=== PATIENT | female | born 1960 | race Caucasian/White ===

== ENCOUNTER 2017-04-30 16:13 | Inpatient (IN) | payer MEDICAID, OTHER ==
[~2017-04-30] VITALS: Ht 175.3 cm; Wt 93.4 kg
--- NOTE | 2017-04-30 16:13 | NUR ---
[id number] FROM [facility]: DISLODGED TRACHE-TUBE 7.0 CORTEX UNCUFFED. PLACED ON MONITOR. GOWNED PT. DR CAVAZOS AT BEDSIDE FOR EVAL. PT ALERT ORIENTED X3 . GTUBE IN PLACED,
--- NOTE | 2017-04-30 16:21 | NUR ---
VELMA VALENZUELA [facility] [phone]
--- NOTE | 2017-04-30 16:33 | NUR ---
REPAGED FOR DR MERLE NAYAK
--- NOTE | 2017-04-30 16:36 | NUR ---
LEFT MESSAGE WITH DR ROSALIO [facility] EMERGENCY LINE FOR ER CONSULT
[2017-04-30 16:43] LABS: BASOPHILS # (AUTO) 0.1 /CMM (0.0-0.2); BASOPHILS % (AUTO) 0.5 % (0.0-2.0); EOSINOPHILS # (AUTO) 0.2 /CMM (0.0-0.7); EOSINOPHILS % (AUTO) 1.5 % (0.0-6.0); HEMATOCRIT 33 % (33-45); HEMOGLOBIN 11.1 g/dL (11.5-14.8); LYMPHOCYTES # (AUTO) 2.5 /CMM (0.8-4.8); LYMPHOCYTES % (AUTO) 22.4 % (20.0-44.0); MEAN CORPUSCULAR HEMOGLOBIN 32 PG (26.0-33.0); MEAN CORPUSCULAR HGB CONC 34 g/dl (31.0-36.0); MEAN CORPUSCULAR VOLUME 95 fL (82-100); MONOCYTES # (AUTO) 0.5 /CMM (0.1-1.30); MONOCYTES % (AUTO) 4.1 % (2.0-12.0); NEUTROPHILS # (AUTO) 7.8 /CMM (1.8-8.9); NEUTROPHILS % (AUTO) 71.5 % (43.0-81.0); PLATELET COUNT (AUTO) 526 /CMM (150-450); RDW COEFFICIENT OF VARIATION 12.4 (11.5-15.0); RED BLOOD CELL COUNT(AUTO) 3.51 MIL/uL (4.0-5.2); WHITE BLOOD COUNT (AUTO) 11.1 K/uL (4.3-11.0)
[2017-04-30 16:53] LABS: POTASSIUM 4.4 mmol/L (3.5-5.1)
--- NOTE | 2017-04-30 16:56 | NUR ---
REPAGED DR JAMARCUS VALENZUELA
[2017-04-30] MEDS ORDERED: HEPA50008 SQ (17:05)
[2017-04-30] MEDS ORDERED: FAMO-131 GT (17:05)
[2017-04-30] MEDS ORDERED: LEVE100S GT (17:05)
[2017-04-30] MEDS ORDERED: SENN8.6T6 GT (17:05)
[2017-04-30] MEDS ORDERED: MINO2.5T GT (17:05)
[2017-04-30] MEDS ORDERED: CRAN3875 GT (17:05)
[2017-04-30] MEDS ORDERED: AMLO10TA2 GT (17:05)
[2017-04-30] MEDS ORDERED: ATOR40TA GT (17:05)
[2017-04-30] MEDS ORDERED: ACET-868 GT (17:05)
[2017-04-30] MEDS ORDERED: ACET-2605 GT (17:05)
[2017-04-30] MEDS ORDERED: LISI-603 PO (17:05)
[2017-04-30] MEDS ORDERED: METO25TA6 GT (17:05)
[2017-04-30] MEDS ORDERED: ACID1TAB15 GT (17:05)
[2017-04-30] MEDS ORDERED: HYDR-552 GT (17:05)
[2017-04-30] MEDS ORDERED: ALBU2.5V13 NEB (17:05)
[2017-04-30] MEDS ORDERED: ASCO500S2 GT (17:05)
[2017-04-30] MEDS ORDERED: GABA-532 GT (17:05)
[2017-04-30] MEDS ORDERED: DOCU-170 GT (17:05)
[2017-04-30 17:11] LABS: INR 0.99 (0.87-1.13); PROTHROMBIN TIME 10.3 SECS (9.5-12.7)
--- NOTE | 2017-04-30 17:13 | NUR ---
CHILDREN'S MINISTER AT BEDSIDE
--- NOTE | 2017-04-30 17:14 | NUR ---
DR VALENZUELA CALLED BACK, TRANSFERRED CALL TO DR CAVAZOS
--- NOTE | 2017-04-30 17:41 | NUR ---
PT CAME IN TO ER WITH TRACH DISLODGED, PUT PT ON 5 L NASAL SATURATION 100%, NO RESPIRATORY DISTRESS, HEMODYNAMIC STABLE. BROUGHT BRONCHOSCOPE DOWN TO ER REQUESTED BY ENT DOCTOR. HOWEVER, FOUND PT REFUSED TO PLACE TRACH BACK IN.
--- NOTE | 2017-04-30 17:57 | NUR ---
PAGED DR ADEEL POSEY FOR PANEL ADMISSION
[2017-04-30] MEDS ORDERED: PANTOPRAZOLE 40 MG TABLET.DR PO SCH (18:30)
[2017-04-30] MEDS ORDERED: ZOLPIDEM TARTRATE 5 MG TABLET PO PRN (18:30)
[2017-04-30] MEDS ORDERED: Medication Not On Formulary EA (Cran/Vitc/Mannose/Inulin/Brom (Uti-Stat Liquid) 30 ML) GT SCH (18:30)
[2017-04-30] MEDS ORDERED: MAG HYDROX/AL HYDROX/SIMETH 30 ML UDC GT PRN (18:30)
[2017-04-30] MEDS ORDERED: ENOXAPARIN SODIUM 30 MG/0.3 ML DISP.SYRIN SQ SCH (18:30)
[2017-04-30] MEDS: FAMOTIDINE (20 MG) 20 MG TABLET GT SCH (18:30)
[2017-04-30] MEDS: HYDROCODONE/APAP 5/325MG 1 EACH TABLET GT SCH (18:30)
[2017-04-30] MEDS: AMLODIPINE BESYLATE 10 MG TABLET GT SCH (18:30)
[2017-04-30] MEDS ORDERED: ACETAMINOPHEN 325 MG TABLET PO SCH (18:30)
[2017-04-30] MEDS ORDERED: ONDANSETRON HCL/PF 4 MG/2 ML VIAL IVP PRN (18:30)
[2017-04-30] MEDS ORDERED: DOCUSATE SODIUM 100 MG CAPSULE PO SCH (18:30)
[2017-04-30] MEDS ORDERED: MAGNESIUM HYDROXIDE 30 ML UDC GT PRN (18:30)
[2017-04-30] MEDS: GABAPENTIN 100 MG CAPSULE GT SCH (18:30)
[2017-04-30] MEDS ORDERED: HYDROCODONE/APAP 5/325MG 1 EACH TABLET GT PRN (18:30)
[2017-04-30] MEDS ORDERED: ASCORBIC ACID SYRUP 500 MG/5 ML UDC GT SCH (18:30)
[2017-04-30] MEDS: SENNOSIDES 8.6 MG TABLET GT SCH (18:30)
[2017-04-30] MEDS ORDERED: LISINOPRIL (20MG) 20 MG TABLET PO SCH (18:30)
--- NOTE | 2017-04-30 18:50 | NUR ---
GAVE REPORT TO SOON RN ADMITTING DX CHRONIC RESP FAILURE DR POSEY
[2017-04-30 19:53] VITALS: BP 136/61
[2017-04-30] MEDS ORDERED: HEPARIN SODIUM, PORCINE 5000 UNITS/1 ML VIAL ONE (20:36)
[2017-04-30] MEDS ORDERED: LEVETIRACETAM SOL (5 ML) 100 MG/ML UDC ONE (20:36)
[2017-04-30] MEDS ORDERED: LISINOPRIL (20MG) 20 MG TABLET ONE (20:36)
[2017-04-30] MEDS ORDERED: ATORVASTATIN 40 MG TABLET ONE (20:37)
[2017-04-30] MEDS ORDERED: METOPROLOL TARTRATE 25 MG TABLET ONE (20:37)
[2017-04-30] MEDS ORDERED: MINOXIDIL (2.5MG) 2.5 MG TABLET ONE (20:37)
[2017-04-30] MEDS: MINOXIDIL (2.5MG) 2.5 MG TABLET GT SCH (21:00)
[2017-04-30] MEDS: ATORVASTATIN 40 MG TABLET GT SCH (21:38)
[2017-04-30] MEDS: METOPROLOL TARTRATE 25 MG TABLET GT SCH (21:41)
[2017-04-30] MEDS: LEVETIRACETAM SOL (5 ML) 100 MG/ML UDC GT SCH (21:53)
[2017-04-30] MEDS: HEPARIN SODIUM, PORCINE 5000 UNITS/1 ML VIAL SQ SCH (21:57)
[2017-05-01] VITALS (7 sets, daily range): BP systolic 98–140; BP diastolic 41–65
[2017-05-01] MEDS ORDERED: ALBUTEROL FS 2.5 MG/0.5 ML VIAL.NEB ONE ×2 (00:39→07:41)
[2017-05-01] MEDS ORDERED: ALBUTEROL FS 2.5 MG/0.5 ML VIAL.NEB NEB SCH ×2 (07:00)
--- NOTE | 2017-05-01 07:03 | NUR ---
RN CLOSING NOTE PT REMAINS IN NO ACUTE DISTRESS IN BED. PT DID NOT HAVE ANY SIGNIFICANT CHANGE IN CONDITION DURING SHIFT. ALL NEEDS MET ALL ORDERS CARRIED OUT. WILL ENDORSE CARE TO AM RN FOR CONTINUITY OF CARE.
[2017-05-01 07:41] LABS: BASOPHILS % (AUTO) 0.2 % (0.0-2.0); EOSINOPHILS % (AUTO) 0.3 % (0.0-6.0); HEMATOCRIT 33 % (33-45); HEMOGLOBIN 11.5 g/dL (11.5-14.8); LYMPHOCYTES # (AUTO) 1.3 /CMM (0.8-4.8); LYMPHOCYTES % (AUTO) 11.9 % (20.0-44.0); MEAN CORPUSCULAR HEMOGLOBIN 33 PG (26.0-33.0); MEAN CORPUSCULAR HGB CONC 35 g/dl (31.0-36.0); MEAN CORPUSCULAR VOLUME 94 fL (82-100); MONOCYTES # (AUTO) 0.4 /CMM (0.1-1.30); MONOCYTES % (AUTO) 3.8 % (2.0-12.0); NEUTROPHILS # (AUTO) 9.3 /CMM (1.8-8.9); NEUTROPHILS % (AUTO) 83.8 % (43.0-81.0); PLATELET COUNT (AUTO) 457 /CMM (150-450); RDW COEFFICIENT OF VARIATION 13.1 (11.5-15.0); RED BLOOD CELL COUNT(AUTO) 3.53 MIL/uL (4.0-5.2)
[2017-05-01] MEDS ORDERED: ZOLPIDEM TARTRATE 5 MG TABLET GT PRN (07:53)
--- NOTE | 2017-05-01 08:00 | NUR ---
agricultural science professor received pt in bed aox2 unable to speak recent trach pulled out at halfway, trach site no bleeding noted stoma present with old blood crust. Pt is hmi plegic right sided flaccid, iv site patent, abd soft active bowl sounds, pt had bm provided daly care, turn and reposition noted daly and buttocks redness zgard ordered and wound consult ordered.
[2017-05-01 08:17] LABS: ALBUMIN 3.8 g/dL (3.4-5.0); BILIRUBIN,TOTAL 0.3 mg/dL (0.2-1.0); CALCIUM, SERUM 10.8 mg/dL (8.5-10.1); MAGNESIUM 1.8 mg/dL (1.8-2.4); PHOSPHORUS 3.4 mg/dL (2.5-4.9); POTASSIUM 4.5 mmol/L (3.5-5.1); TOTAL PROTEIN, SERUM 8.2 g/dL (6.4-8.2)
[2017-05-01] MEDS ORDERED: ACETAMINOPHEN 650 MG/20.3 ML UDC GT PRN (08:30)
[2017-05-01] MEDS ORDERED: DOCUSATE SODIUM LIQ 100 MG/10 ML UDC GT SCH (08:30)
[2017-05-01] MEDS: LEVETIRACETAM SOL (5 ML) 100 MG/ML UDC GT SCH ×2 (08:37→20:36)
[2017-05-01] MEDS: HYDROCODONE/APAP 5/325MG 1 EACH TABLET GT SCH ×2 (08:37→17:41)
[2017-05-01] MEDS: PANTOPRAZOLE 40 MG/PACK PACK GT SCH (08:37)
[2017-05-01] MEDS: ACETAMINOPHEN 650 MG/20.3 ML UDC GT SCH (08:37)
[2017-05-01] MEDS: DOCUSATE SODIUM LIQ 100 MG/10 ML UDC GT SCH ×2 (08:37→17:41)
[2017-05-01] MEDS: AMLODIPINE BESYLATE 10 MG TABLET GT SCH (08:38)
[2017-05-01] MEDS: GABAPENTIN 100 MG CAPSULE GT SCH ×3 (08:38→17:41)
[2017-05-01] MEDS: LISINOPRIL (20MG) 20 MG TABLET GT SCH ×2 (08:38→20:36)
[2017-05-01] MEDS: FAMOTIDINE (20 MG) 20 MG TABLET GT SCH (08:38)
[2017-05-01] MEDS: MINOXIDIL (2.5MG) 2.5 MG TABLET GT SCH ×2 (08:38→20:35)
[2017-05-01] MEDS: SENNOSIDES 8.6 MG TABLET GT SCH (08:38)
[2017-05-01] MEDS: METOPROLOL TARTRATE 25 MG TABLET GT SCH ×2 (08:39→20:35)
[2017-05-01] MEDS: LACTOBACILLUS RHAMNOSUS GG 1 EACH CAP.SPRINK GT SCH (08:39)
[2017-05-01] MEDS: ASCORBIC ACID 500 MG TABLET GT SCH (08:39)
[2017-05-01] MEDS ORDERED: ACIDOPHILUS/BULGARICUS 1 EACH GRAN.PACK GT SCH (09:00)
[2017-05-01] MEDS: HEPARIN SODIUM, PORCINE 5000 UNITS/1 ML VIAL SQ SCH ×2 (09:07→20:37)
[2017-05-01] MEDS: ALBUTEROL FS 2.5 MG/0.5 ML VIAL.NEB NEB SCH ×2 (14:28→19:09)
--- NOTE | 2017-05-01 20:00 | NUR ---
RN NOTES PX RECEIVED AWAKE, ALERT, FOLLOWS COMMANDS, COMMUNICATES BY POITING WITH FINGERS AND MOUTHING WORDS, WITH INCOMPREHENDSIBLE SOUNDS; NOTED DRESSING ON THE ANTERIOR LOWER NECK, WITH OLD TRACH SITE, NO BLEEDING NOTED; PX DENIED SOB, N/V, PAIN; NOTED RIGHT SIDED WEAKNESS; HOB AT 30 ANGLE; PIV FLUSHED WITH SALINE NO S/SX INFILTRATION; G TUBE CLAMPED, FLUSHED WITH WATER; HEELS OFFLOADED; REPOSITIONED IN BED; CHANGED DIAPER, INCONTINENT OF URINE, PERICARE RENDERED, PROCEDURE TOLERATED, DISCUSSED PLAN OF CARE. CALL LIGHT WITHIN REACH.
[2017-05-01] MEDS ORDERED: ENOXAPARIN SODIUM 40 MG/0.4 ML DISP.SYRIN SQ SCH (21:00)
[2017-05-01] MEDS: ATORVASTATIN 40 MG TABLET GT SCH (21:37)
[2017-05-02] VITALS: BP 117/54
--- NOTE | 2017-05-02 01:29 | NUR ---
RN NOTES CONDITION UNCHANGED, RESP EVEN AND UNLABORED, O2 SAT 92-97%.
[2017-05-02] MEDS: ALBUTEROL FS 2.5 MG/0.5 ML VIAL.NEB NEB SCH ×4 (01:30→19:47)
[2017-05-02 04:00] VITALS: BP 106/59
--- NOTE | 2017-05-02 06:34 | NUR ---
RN NOTES CONDITION AND NEURO STATUS UNCHANGED, RESP EVEN AND UNLABORED NO S/SX DISTRESS, O2 SAT 98%, DENIED PAIN, SOB, N/V; NO SKIN BREAKDOWN, EXCORIATION ON SACRAL AREA HEALING; PIV STILL INTACT NO S/SX INFILTRATION; SR ON MONITOR.
--- NOTE | 2017-05-02 07:15 | NUR ---
RN NOTES REPORT GIVEN TO KAIDEN FOR CONTINUITY OF CARE.
--- NOTE | 2017-05-02 07:55 | NUR ---
rajan rn note received pt in bed aox2 speach is not clear , recent trach pulled out at care home, trach site no bleeding noted stoma present with old blood crust with dry dressing intact , . Pt is hmi plegic right sided flaccid, iv site patent, abd soft nontender, turn and reposition done no sob noted at this time ,sat 93% on 4l nc lt hand hl intact and ptent no s\infection noted , bed in lowest and locked position call light within reach , plan of care discussed with patient, safety measure provided , on tele monitor sr 72 , will cont to monitor closely
[2017-05-02 08:00] VITALS: BP 117/53
[2017-05-02] MEDS: LACTOBACILLUS RHAMNOSUS GG 1 EACH CAP.SPRINK GT SCH (08:33)
[2017-05-02] MEDS: DOCUSATE SODIUM LIQ 100 MG/10 ML UDC GT SCH ×2 (08:33→16:18)
[2017-05-02] MEDS: ACETAMINOPHEN 650 MG/20.3 ML UDC GT SCH (08:33)
[2017-05-02] MEDS: ASCORBIC ACID 500 MG TABLET GT SCH (08:34)
[2017-05-02] MEDS: PANTOPRAZOLE 40 MG/PACK PACK GT SCH (08:34)
[2017-05-02] MEDS: GABAPENTIN 100 MG CAPSULE GT SCH ×3 (08:34→16:18)
[2017-05-02] MEDS: LEVETIRACETAM SOL (5 ML) 100 MG/ML UDC GT SCH ×2 (08:34→20:41)
[2017-05-02] MEDS: SENNOSIDES 8.6 MG TABLET GT SCH (08:35)
[2017-05-02] MEDS: METOPROLOL TARTRATE 25 MG TABLET GT SCH ×2 (08:35→20:41)
[2017-05-02] MEDS: FAMOTIDINE (20 MG) 20 MG TABLET GT SCH (08:35)
[2017-05-02] MEDS: AMLODIPINE BESYLATE 10 MG TABLET GT SCH (08:36)
[2017-05-02] MEDS: LISINOPRIL (20MG) 20 MG TABLET GT SCH ×2 (08:36→20:41)
[2017-05-02] MEDS: MINOXIDIL (2.5MG) 2.5 MG TABLET GT SCH ×2 (08:36→20:41)
[2017-05-02] MEDS: HEPARIN SODIUM, PORCINE 5000 UNITS/1 ML VIAL SQ SCH ×2 (08:49→20:44)
[2017-05-02] MEDS: HYDROCODONE/APAP 5/325MG 1 EACH TABLET GT SCH (09:00)
--- NOTE | 2017-05-02 10:54 | NUR ---
WHIT RN NOTE SPOKE WITH DR GOMEZ CLARIFICATION OF NORCO ORDER DONE WILL GIVE PRN
--- NOTE | 2017-05-02 11:23 | NUR ---
WHIT RN NOTE SPOKE WITH DR CABELLO AWARE OF CHEST X RAY RESULT , WITH ORDER 6L O2 AND CHEST X RAY IN AM ,ORDER CARRIED OUT
[2017-05-02 12:00] VITALS: BP 115/52
--- NOTE | 2017-05-02 12:46 | NUR ---
HOSPICE EXECUTIVE DIRECTOR NOTE PER FAMILY REQUEST SPOKE WITH DR GOMEZ TO CORIN DIRECTOR WORKERS COMPENSATION DUE TO DEPRESSION MANIFESTED CRYING AND CHILDLIKE [employer] , CALLED [facility] ,FAXED FACE SHEET, DR MAE TELEVISION PROGRAM DIRECTOR FOR TODAY ,WILL F\U
--- NOTE | 2017-05-02 15:11 | NUR ---
WOUND CARE CONSULT: PT PRESENTS WITH SOME MOISTURE ISSUES AND REDNESS TO PERINEUM, GROIN AND ABDOMINAL SKIN FOLDS. RECOMMENDATIONS MADE FOR SKIN PROTECTION. DISCUSSED WITH NURSING STAFF. FIRST STEP MATTRESS ORDERED. SKIN TO BE KEPT CLEAN AND DRY. IN AGREEMENT WITH PLAN OF CARE. Addendum: 05/02/17 at 1513 by RADHA OLIVAS WNDNU Amended: Links added.
--- NOTE | 2017-05-02 15:20 | NUR ---
HAIR SPINNER NOTE SEEN BY WOUND NURSE OTTO COREY WILL APPLIED ORDERED
[2017-05-02 16:00] VITALS: BP 113/34
--- NOTE | 2017-05-02 18:10 | NUR ---
SUPERINTENDENT ELECTRIC POWER NOTE ALL NEEDS ATTENDED ,[employer] APPLIED, FRIEND AT BEDSIDE, KEEP CLEAN DRY , NOT IN ACUTE DISTRESS
--- NOTE | 2017-05-02 19:10 | NUR ---
RN NOTE RECEIVED REPORT. PT AAOX2-3, NO S/S OF RESPIRATORY DISTRESS AT THIS TIEME. TRACE AREA COVERED WITH DRESSING (WAS PULLED OUT AT RETIREMENT) SKIN NON-DIAPHORETIC, WARM TO TOUCH. TELE SHOWS SR. IV'S INTACT AND PATENT. CALL LIGHT IN LAZARACYRIL, FAMILY AT BEDSIDE. WILL MONITOR. Addendum: 05/02/17 at 6 by PACO BERRY RN G TUBE INTACT, FLUSHED.
[2017-05-02 20:00] VITALS: BP 131/60
[2017-05-02] MEDS: ATORVASTATIN 40 MG TABLET GT SCH (22:08)
[2017-05-03] VITALS: BP 123/69
[2017-05-03] MEDS: ALBUTEROL FS 2.5 MG/0.5 ML VIAL.NEB NEB SCH ×4 (02:28→20:02)
--- NOTE | 2017-05-03 03:05 | NUR ---
RN NOTE NO DISTRESS NOTED AT THIS TIME. PT RESTING WITH EYES CLOSED. WILL MONITOR.
[2017-05-03 04:00] VITALS: BP 127/59
--- NOTE | 2017-05-03 07:04 | NUR ---
RN NOTE NO SIGNIFICANT CHANGES OVERNIGHT. PT AAOX2-3. NO S/S OF RESPIRATORY DISTRESS. DRESSING COVERING DECANNULATED TRACH. BREATHING NON-LABORED AND EVEN ON 6 L NC. IV INTACT AND PATENT. ALL NEEDS ATTENED TO, WILL F/U WITH DAY SHIFT FOR JOEL.
[2017-05-03 07:13] LABS: BASOPHILS % (AUTO) 0.3 % (0.0-2.0); EOSINOPHILS # (AUTO) 0.3 /CMM (0.0-0.7); EOSINOPHILS % (AUTO) 3.5 % (0.0-6.0); HEMATOCRIT 33 % (33-45); LYMPHOCYTES % (AUTO) 24.5 % (20.0-44.0); MEAN CORPUSCULAR HEMOGLOBIN 32 PG (26.0-33.0); MEAN CORPUSCULAR HGB CONC 34 g/dl (31.0-36.0); MEAN CORPUSCULAR VOLUME 95 fL (82-100); MONOCYTES # (AUTO) 0.4 /CMM (0.1-1.30); MONOCYTES % (AUTO) 4.5 % (2.0-12.0); NEUTROPHILS # (AUTO) 5.5 /CMM (1.8-8.9); NEUTROPHILS % (AUTO) 67.2 % (43.0-81.0); PLATELET COUNT (AUTO) 428 /CMM (150-450); RDW COEFFICIENT OF VARIATION 13.2 (11.5-15.0); RED BLOOD CELL COUNT(AUTO) 3.42 MIL/uL (4.0-5.2); WHITE BLOOD COUNT (AUTO) 8.2 K/uL (4.3-11.0)
[2017-05-03 07:34] LABS: CALCIUM, SERUM 10.2 mg/dL (8.5-10.1); MAGNESIUM 1.6 mg/dL (1.8-2.4); PHOSPHORUS 3.7 mg/dL (2.5-4.9); POTASSIUM 4.4 mmol/L (3.5-5.1)
[2017-05-03 08:00] VITALS: BP_SYST 121; BP_SYST 125; BP_DIAS 52
[2017-05-03] MEDS: GABAPENTIN 100 MG CAPSULE GT SCH ×3 (09:26→16:36)
[2017-05-03] MEDS: DOCUSATE SODIUM LIQ 100 MG/10 ML UDC GT SCH ×2 (09:26→16:36)
[2017-05-03] MEDS: LACTOBACILLUS RHAMNOSUS GG 1 EACH CAP.SPRINK GT SCH (09:26)
[2017-05-03] MEDS: SENNOSIDES 8.6 MG TABLET GT SCH (09:26)
[2017-05-03] MEDS: ASCORBIC ACID 500 MG TABLET GT SCH (09:26)
[2017-05-03] MEDS: FAMOTIDINE (20 MG) 20 MG TABLET GT SCH (09:26)
[2017-05-03] MEDS: AMLODIPINE BESYLATE 10 MG TABLET GT SCH (09:27)
[2017-05-03] MEDS: HEPARIN SODIUM, PORCINE 5000 UNITS/1 ML VIAL SQ SCH ×2 (09:28→22:00)
[2017-05-03] MEDS: LEVETIRACETAM SOL (5 ML) 100 MG/ML UDC GT SCH ×2 (09:32→21:56)
[2017-05-03] MEDS: PANTOPRAZOLE 40 MG/PACK PACK GT SCH (09:32)
[2017-05-03] MEDS: LISINOPRIL (20MG) 20 MG TABLET GT SCH ×2 (09:32→21:58)
[2017-05-03] MEDS: MINOXIDIL (2.5MG) 2.5 MG TABLET GT SCH ×2 (09:33→21:57)
[2017-05-03] MEDS: METOPROLOL TARTRATE 25 MG TABLET GT SCH ×2 (09:44→21:57)
[2017-05-03] MEDS: Magnesium 1GM/D5W 100ML PREMIX 100 ML IV SCH ×2 (12:37→13:29)
--- NOTE | 2017-05-03 13:26 | NUR ---
Psychiatry visit at this time. Did not appreciate depression & / anxiety.
[2017-05-03 16:00] VITALS: BP_SYST 113; BP_SYST 121; BP_DIAS 40; BP_DIAS 52
--- NOTE | 2017-05-03 19:10 | NUR ---
Handoff report to night nurse.
[2017-05-03 20:00] VITALS: BP 136/99
[2017-05-03] MEDS: ATORVASTATIN 40 MG TABLET GT SCH (22:00)
[2017-05-04] MEDS: ALBUTEROL FS 2.5 MG/0.5 ML VIAL.NEB NEB SCH ×4 (01:13→19:09)
[2017-05-04 04:00] VITALS: BP_SYST 105; BP_SYST 108; BP_DIAS 57; BP_DIAS 66
[2017-05-04 07:01] LABS: BASOPHILS % (AUTO) 0.3 % (0.0-2.0); EOSINOPHILS # (AUTO) 0.3 /CMM (0.0-0.7); EOSINOPHILS % (AUTO) 3.3 % (0.0-6.0); HEMATOCRIT 33 % (33-45); HEMOGLOBIN 11.2 g/dL (11.5-14.8); LYMPHOCYTES # (AUTO) 2.3 /CMM (0.8-4.8); LYMPHOCYTES % (AUTO) 24.1 % (20.0-44.0); MEAN CORPUSCULAR HEMOGLOBIN 33 PG (26.0-33.0); MEAN CORPUSCULAR HGB CONC 34 g/dl (31.0-36.0); MEAN CORPUSCULAR VOLUME 96 fL (82-100); MONOCYTES # (AUTO) 0.5 /CMM (0.1-1.30); NEUTROPHILS # (AUTO) 6.5 /CMM (1.8-8.9); NEUTROPHILS % (AUTO) 67.3 % (43.0-81.0); PLATELET COUNT (AUTO) 414 /CMM (150-450); RDW COEFFICIENT OF VARIATION 13.2 (11.5-15.0); RED BLOOD CELL COUNT(AUTO) 3.43 MIL/uL (4.0-5.2); WHITE BLOOD COUNT (AUTO) 9.6 K/uL (4.3-11.0)
--- NOTE | 2017-05-04 07:30 | NUR ---
MS RN NOTE: RECEIVED PT RESTING COMFORTABLY IN BED AND EASILY AWAKEN TO NAME. PT IS A&OX3, DENIES PAIN. ON O2 2LPM VIA NC, RESPIRATIONS EVEN AND UNLABORED WITH NO SOB NOTED. LAC INTACT AND PATENT. G-TUBE INTACT AND PATENT. DVT PUMPS NOTED. BED LOW, LOCKED WITH CALL LIGHT WITHIN REACH. WILL CONT TO MONITOR.
[2017-05-04 07:36] LABS: CALCIUM, SERUM 10.4 mg/dL (8.5-10.1); CREATININE 1.1 mg/dL (0.6-1.3); PHOSPHORUS 3.9 mg/dL (2.5-4.9); POTASSIUM 4.4 mmol/L (3.5-5.1)
[2017-05-04 08:00] VITALS: BP 118/76
[2017-05-04 08:28] VITALS: BP 118/76
[2017-05-04] MEDS: GABAPENTIN 100 MG CAPSULE GT SCH ×3 (09:20→18:30)
[2017-05-04] MEDS: LACTOBACILLUS RHAMNOSUS GG 1 EACH CAP.SPRINK GT SCH (09:20)
[2017-05-04] MEDS: DOCUSATE SODIUM LIQ 100 MG/10 ML UDC GT SCH ×2 (09:20→18:30)
[2017-05-04] MEDS: LEVETIRACETAM SOL (5 ML) 100 MG/ML UDC GT SCH ×2 (09:21→21:21)
[2017-05-04] MEDS: PANTOPRAZOLE 40 MG/PACK PACK GT SCH (09:32)
[2017-05-04] MEDS: AMLODIPINE BESYLATE 10 MG TABLET GT SCH (09:32)
[2017-05-04] MEDS: ASCORBIC ACID 500 MG TABLET GT SCH (09:33)
[2017-05-04] MEDS: FAMOTIDINE (20 MG) 20 MG TABLET GT SCH (09:34)
[2017-05-04] MEDS: HEPARIN SODIUM, PORCINE 5000 UNITS/1 ML VIAL SQ SCH ×2 (09:56→21:23)
[2017-05-04] MEDS: MINOXIDIL (2.5MG) 2.5 MG TABLET GT SCH ×2 (09:58→21:00)
[2017-05-04] MEDS: LISINOPRIL (20MG) 20 MG TABLET GT SCH ×2 (09:58→21:00)
[2017-05-04] MEDS: METOPROLOL TARTRATE 25 MG TABLET GT SCH ×2 (09:58→21:22)
--- NOTE | 2017-05-04 10:45 | NUR ---
MS RN NOTE: DR. ALLEN SEEN PT AT BEDSIDE. H/O CVA WITH RIGHT SIDED WEAKNESS, A&OX3. NO NEW ORDERS.
[2017-05-04 12:00] VITALS: BP 108/51
[2017-05-04] MEDS: SENNOSIDES 8.6 MG TABLET GT SCH (12:20)
--- NOTE | 2017-05-04 15:06 | NUR ---
MS RN NOTE: PT TAKEN TO RADIOLOGY.
--- NOTE | 2017-05-04 18:00 | NUR ---
MS RN NOTE: DR. GOMEZ PAGED FOR CT RESULTS PER RADIOLOGIST DR. TRAYLOR.
--- NOTE | 2017-05-04 18:43 | NUR ---
MS RN NOTE: NO ACUTE CHANGES DURING SHIFT. PATIENT REMAINED A&OX3, DENIED PAIN. ON O2 2LPM VIA NC, RESPIRATIONS EVEN AND UNLABORED WITH NO SOB NOTED. LAC INTACT AND PATENT. GTUBE INTACT AND PATENT. ORDERS CARRIED OUT. BED LOW, LOCKED WITH CALL LIGHT WITHIN REACH. WILL ENDORSE TO TREE PLANTER NURSE FOR JOEL.
--- NOTE | 2017-05-04 19:01 | NUR ---
MS RN NOTE: [facility] CALLED BACK FOR STATUS. WILL PAGE DR. GOMEZ TO RETURN CALL.
--- NOTE | 2017-05-04 19:20 | NUR ---
RN NOTE CALLED DR GOMEZ TO INFORM OF RESULTS OF CT OF THE CHEST. DR GOMEZ SAID TO INFORM DR CABELLO THE ORDERING
--- NOTE | 2017-05-04 19:24 | NUR ---
RN NOTE CALLED DR CABELLO AND AWAITING CALL BACK FROM SOAP GRINDER
--- NOTE | 2017-05-04 19:53 | NUR ---
RN INITIAL NOTE RECEIVED PT IN NO ACUTE DISTRESS IN BED. PT IS A/O X 3 AND ABLE TO MAKE NEEDS KNOWN. PT STILL HAS DIFFICULTY COMMUNICATING BUT IS ABLE TO SAY YES AND NO. PT HAS RIGHT SIDED PARALYSIS WITH FEELING TO THE LOWER EXTREMITY. PT IS NOT C/O ANY SOB, DIFFICULTY BREATHING OR PAIN AT THIS TIME. PT HAS GTUBE THAT IS CLEAN DRY INTACT AND PATENT WITH WATER FLUSH. PT HAS LAC 24G THAT IS CLEAN DRY INTACT AND PATENT WITH SALINE LOCK. BED IN LOW LOCK POSITION WITH RIALS UP X 2. CALL LIGHT WITHIN REACH AND ALL SAFETY MEASURES ENSURED AND CARRIED OUT. WILL CONTINUE TO MONITOR FOR ANY CHANGES IN CONDITION.
[2017-05-04 20:00] VITALS: BP 121/45
--- NOTE | 2017-05-04 20:30 | NUR ---
RN NOTE RECEIVED CALL BACK FROM DR. PALMER. GAVE RESULTS FROM CT SCAN OF CHEST. NO NEW ORDERS. WILL CONTINUE TO MONITOR PT
[2017-05-04] MEDS: ATORVASTATIN 40 MG TABLET GT SCH (21:21)
[2017-05-05] MEDS: ALBUTEROL FS 2.5 MG/0.5 ML VIAL.NEB NEB SCH ×4 (01:24→19:38)
[2017-05-05 04:00] VITALS: BP 110/50
--- NOTE | 2017-05-05 06:27 | NUR ---
RN CLOSING NOTE PT REMAINS IN NO ACUTE DISTRESS IN BED. PT DID NOT HAVE ANY SIGNIFICANT CHANGE IN CONDITION DURING SHIFT. ALL NEEDS MET, ALL ORDERS CARRIED OUT. WILL ENDORSE CARE TO AM RN FOR CONTINUITY OF CARE.
[2017-05-05 07:05] LABS: BASOPHILS % (AUTO) 0.4 % (0.0-2.0); EOSINOPHILS # (AUTO) 0.3 /CMM (0.0-0.7); EOSINOPHILS % (AUTO) 3.1 % (0.0-6.0); HEMATOCRIT 32 % (33-45); HEMOGLOBIN 10.7 g/dL (11.5-14.8); LYMPHOCYTES # (AUTO) 2.2 /CMM (0.8-4.8); LYMPHOCYTES % (AUTO) 20.6 % (20.0-44.0); MEAN CORPUSCULAR HEMOGLOBIN 32 PG (26.0-33.0); MEAN CORPUSCULAR HGB CONC 34 g/dl (31.0-36.0); MEAN CORPUSCULAR VOLUME 96 fL (82-100); MONOCYTES # (AUTO) 0.6 /CMM (0.1-1.30); MONOCYTES % (AUTO) 5.9 % (2.0-12.0); NEUTROPHILS # (AUTO) 7.4 /CMM (1.8-8.9); PLATELET COUNT (AUTO) 390 /CMM (150-450); RDW COEFFICIENT OF VARIATION 13.3 (11.5-15.0); RED BLOOD CELL COUNT(AUTO) 3.31 MIL/uL (4.0-5.2); WHITE BLOOD COUNT (AUTO) 10.5 K/uL (4.3-11.0)
--- NOTE | 2017-05-05 07:05 | NUR ---
MS RN NOTE: RECEIVED PT AWAKE IN BED. PT IS A&OX3, DENIES PAIN. ON O2 2LPM VIA NC, RESPIRATIONS EVEN AND UNLABORED WITH NO SOB NOTED. HOB ELEVATED. LAC INTACT AND PATENT. G-TUBE INTACT AND PATENT. DVT PUMPS NOTED. BED LOW, LOCKED WITH CALL LIGHT WITHIN REACH. WILL CONT TO MONITOR.
[2017-05-05 07:31] LABS: CALCIUM, SERUM 10.1 mg/dL (8.5-10.1); MAGNESIUM 1.7 mg/dL (1.8-2.4); PHOSPHORUS 3.7 mg/dL (2.5-4.9); POTASSIUM 4.3 mmol/L (3.5-5.1)
[2017-05-05 08:00] VITALS: BP 109/48
[2017-05-05] MEDS: SENNOSIDES 8.6 MG TABLET GT SCH (08:18)
[2017-05-05] MEDS: FAMOTIDINE (20 MG) 20 MG TABLET GT SCH (08:18)
[2017-05-05] MEDS: LACTOBACILLUS RHAMNOSUS GG 1 EACH CAP.SPRINK GT SCH (08:18)
[2017-05-05] MEDS: ASCORBIC ACID 500 MG TABLET GT SCH (08:18)
[2017-05-05] MEDS: LEVETIRACETAM SOL (5 ML) 100 MG/ML UDC GT SCH ×2 (08:18→21:53)
[2017-05-05] MEDS: DOCUSATE SODIUM LIQ 100 MG/10 ML UDC GT SCH ×2 (08:18→16:17)
[2017-05-05] MEDS: GABAPENTIN 100 MG CAPSULE GT SCH ×3 (08:18→16:17)
[2017-05-05] MEDS: PANTOPRAZOLE 40 MG/PACK PACK GT SCH (08:18)
[2017-05-05] MEDS: HEPARIN SODIUM, PORCINE 5000 UNITS/1 ML VIAL SQ SCH ×2 (08:22→21:55)
[2017-05-05] MEDS: METOPROLOL TARTRATE 25 MG TABLET GT SCH ×2 (09:00→21:54)
[2017-05-05] MEDS: MINOXIDIL (2.5MG) 2.5 MG TABLET GT SCH ×2 (09:00→21:54)
[2017-05-05] MEDS: LISINOPRIL (20MG) 20 MG TABLET GT SCH ×2 (09:00→21:54)
--- NOTE | 2017-05-05 09:15 | NUR ---
MS RN NOTE: PATIENT REQUESTED TO HAVE DVT PUMPS REMOVED. EDUCATED PT ON RISKS AND BENEFITS, BUT PATIENT INSISTED TO HAVE THEM REMOVED.
[2017-05-05] MEDS: Magnesium 1GM/D5W 100ML PREMIX 100 ML IV SCH ×2 (12:04→13:19)
[2017-05-05] MEDS: AMLODIPINE BESYLATE 10 MG TABLET GT SCH (12:15)
[2017-05-05 16:00] VITALS: BP 109/66
--- NOTE | 2017-05-05 18:16 | NUR ---
spoke with partner Olga Lidia and discussed dc planning option. Patient came from [facility] x4 months s/p CVA with residual right hemiplegia.Patient do not want to return to SNF. Patient Family want to take patient home with homehealth, might need DME arrangement. Will request for PT santos, will also coordinate with [facility] dc cyber intel planner for dc planning needs arrangement. Addendum: 05/05/17 at 1816 by PRIMITIVO LEYVA RN Amended: Links added.
--- NOTE | 2017-05-05 18:56 | NUR ---
MS RN NOTE: NO ACUTE CHANGES DURING SHIFT. PT REMAINED A&OX3, DENIES PAIN. ON 3LPM O2 VIA NC, NO SOB NOTED. HOB ELEVATED. LAC INTACT AND PATENT. G-TUBE INTACT AND PATENT. BED LOW, LOCKED, X2 SIDE RAILS UP AND CALL LIGHT WITHIN REACH. ORDERS CARRIED OUT. WILL ENDORSE TO MAGAZINE KEEPER NURSE FOR JOEL.
[2017-05-05 20:00] VITALS: BP 104/59
--- NOTE | 2017-05-05 20:00 | NUR ---
RN INITIAL NOTES RECEIVED PATIENT IN BED, AWAKE AND ALERT AND ORIENTED. OBSERVED WITH R SIDED HEMIPARESIS. NOTED WITH DELAYED AND SLURRED SPEECH. PATIENT ABLE TO MAKE NEEDS KNOWN, DENIES PAIN AND DISCOMFORT. NOT IN ANY ACUTE DISTRESS, ON 3LPM OF O2 VIA NC, RESPIRATION IS EVEN AND UNLABORED. TRACH STOMA INTACT WITH CLOSURE, NO DISCHARGE AND NO BLEEDING ON SITE. GT IN PLACE, FLUSHED AND PATENT. L AC G24, INTACT AND PATENT, NO SIGNS OF INFILTRATION, ON SL. PATIENT'S NEEDS ANTICIPATED AND MET AT THIS TIME. SAFETY AND COMFORT ENSURED. BED IN LOW AND LOCKED POSITION. CALL LIGHT IN REACH. WILL MONITOR CLOSELY.
[2017-05-05] MEDS: ATORVASTATIN 40 MG TABLET GT SCH (21:54)
--- NOTE | 2017-05-05 22:00 | NUR ---
RN NOTES ALL DUE MEDS GIVEN ORDERED, CRUSHED AND MIXED IN APPLE SAUCE. PATIENT TOLERATED MED ADMINISTRATION, ABLE TO SWALLOW WELL, NO ASPIRATION NOTED, NO COUGHING EPISODE NOTED. ASPIRATION PRECAUTION CLOSELY OBSERVED. NEEDS ANTICIPATED AND MET. CALL LIGHT IN REACH.
[2017-05-06] MEDS: ALBUTEROL FS 2.5 MG/0.5 ML VIAL.NEB NEB SCH ×4 (02:25→19:58)
[2017-05-06 04:00] VITALS: BP 116/47
--- NOTE | 2017-05-06 06:52 | NUR ---
RN CLOSING NOTES PATIENT WITH NO ACUTE CHANGE IN CONDITION OBSERVED OVERNIGHT. AIRWAY KEPT CLEAR AND PATENT. RESTING COMFORTABLY AT THIS TIME, RESPIRATION IS EVEN AND UNLABORED WITH NO DISTRESS. KEPT CLEAN AND DRY. GOOD PERICARE RENDERED AT ALL TIMES. SKIN BARRIER APPLIED. SAFETY AND COMFORT ENSURED. BED IN LOW AND LOCKED POSITION. CALL LIGHT IN REACH. WILL ENDORSE ACCORDINGLY FOR CONTINUITY OF CARE.
[2017-05-06 07:01] LABS: CALCIUM, SERUM 10.3 mg/dL (8.5-10.1); CREATININE 0.9 mg/dL (0.6-1.3); MAGNESIUM 1.9 mg/dL (1.8-2.4); POTASSIUM 4.5 mmol/L (3.5-5.1)
--- NOTE | 2017-05-06 07:05 | NUR ---
MS RN NOTE: RECEIVED PT SLEEPING IN BED AND EASILY AWAKENED TO NAME. PT IS A&OX3, DENIES PAIN. ON O2 3LPM VIA NC, RESPIRATIONS EVEN AND UNLABORED WITH NO SOB NOTED. HOB ELEVATED. LAC INTACT AND PATENT. G-TUBE INTACT AND PATENT. DVT PUMPS NOTED. BED LOW, LOCKED, X2 SIDE RAILS UP WITH CALL LIGHT WITHIN REACH. WILL CONT TO MONITOR.
[2017-05-06 08:00] VITALS: BP 112/67
[2017-05-06] MEDS: LEVETIRACETAM SOL (5 ML) 100 MG/ML UDC GT SCH ×2 (08:32→20:35)
[2017-05-06] MEDS: SENNOSIDES 8.6 MG TABLET GT SCH (08:32)
[2017-05-06] MEDS: DOCUSATE SODIUM LIQ 100 MG/10 ML UDC GT SCH ×2 (08:32→16:54)
[2017-05-06] MEDS: LACTOBACILLUS RHAMNOSUS GG 1 EACH CAP.SPRINK GT SCH (08:32)
[2017-05-06] MEDS: ASCORBIC ACID 500 MG TABLET GT SCH (08:32)
[2017-05-06] MEDS: GABAPENTIN 100 MG CAPSULE GT SCH ×3 (08:33→16:54)
[2017-05-06] MEDS: PANTOPRAZOLE 40 MG/PACK PACK GT SCH (08:33)
[2017-05-06] MEDS: AMLODIPINE BESYLATE 10 MG TABLET GT SCH (08:33)
[2017-05-06] MEDS: FAMOTIDINE (20 MG) 20 MG TABLET GT SCH (08:33)
[2017-05-06] MEDS: METOPROLOL TARTRATE 25 MG TABLET GT SCH ×2 (08:34→21:00)
[2017-05-06] MEDS: MINOXIDIL (2.5MG) 2.5 MG TABLET GT SCH ×2 (08:34→21:00)
[2017-05-06] MEDS: LISINOPRIL (20MG) 20 MG TABLET GT SCH ×2 (08:34→21:00)
[2017-05-06] MEDS: HEPARIN SODIUM, PORCINE 5000 UNITS/1 ML VIAL SQ SCH ×2 (08:37→20:36)
--- NOTE | 2017-05-06 10:00 | NUR ---
MS RN NOTE: XR AT BEDSIDE.
--- NOTE | 2017-05-06 14:00 | NUR ---
MS RN NOTE: PER DR. COOPER, OK TO GIVE CRUSHED MEDS PO INSTEAD OF VIA GTUBE.
[2017-05-06 16:00] VITALS: BP 115/47
--- NOTE | 2017-05-06 17:00 | NUR ---
MS RN NOTE: PATIENT REQUESTED TO HAVE DVT PUMP REMOVED.
--- NOTE | 2017-05-06 19:38 | NUR ---
MS RN NOTE: NO ACUTE CHANGES DURING SHIFT. PT REMAINED A&OX3, DENIED PAIN. ON 3LPM O2 VIA NC, NO SOB NOTED. HOB ELEVATED. LAC INTACT AND PATENT. G-TUBE INTACT AND PATENT. BED LOW, LOCKED, X2 SIDE RAILS UP AND CALL LIGHT WITHIN REACH. ORDERS CARRIED OUT. WILL ENDORSE TO PLUMBING MANAGER NURSE FOR JOEL.
--- NOTE | 2017-05-06 19:40 | NUR ---
RN INITIAL NOTES: RECEIVED REPORT FROM JENNIFER CHU, PT IN BED, AWAKE, ON RA, RESPIRATION EVEN AND UNLABORED, NO FACIAL GRIMACE NOTED, AT BED SIDE, PT HAS GTUBE IN PLACED BUT CLAMPED, PT CAN HAVE PO INTAKE, ON SOFT DIET, LFA IV ACCESS PATENT AND FLUSHING WELL, ON HL. BLE OFFLOADED. SAFETY PRECAUTION FOR FALL INITIATED CALL LIGHT IN REACH WILL CONTINUE TO MONITOR
[2017-05-06 20:00] VITALS: BP 111/67
--- NOTE | 2017-05-06 21:00 | NUR ---
RN NOTES: ALL DUE MEDS GIVEN, NO ASPIRATION NOTED, WILL CONTINUE TO MONITOR
[2017-05-06] MEDS: ATORVASTATIN 40 MG TABLET GT SCH (22:10)
--- NOTE | 2017-05-06 22:10 | NUR ---
RN NOTES: DUE MEDS GIVEN ORDERED, CRUSHED AND MIXED WITH APPLE SAUCE, NO ASPIRATION NOTED, WILL CONTINUE TO MONITOR
[2017-05-07] MEDS: ALBUTEROL FS 2.5 MG/0.5 ML VIAL.NEB NEB SCH ×4 (01:40→19:18)
[2017-05-07 06:32] LABS: BASOPHILS % (AUTO) 0.5 % (0.0-2.0); EOSINOPHILS # (AUTO) 0.2 /CMM (0.0-0.7); EOSINOPHILS % (AUTO) 2.2 % (0.0-6.0); HEMATOCRIT 33 % (33-45); HEMOGLOBIN 11.3 g/dL (11.5-14.8); LYMPHOCYTES # (AUTO) 2.2 /CMM (0.8-4.8); LYMPHOCYTES % (AUTO) 22.5 % (20.0-44.0); MEAN CORPUSCULAR HEMOGLOBIN 33 PG (26.0-33.0); MEAN CORPUSCULAR HGB CONC 35 g/dl (31.0-36.0); MEAN CORPUSCULAR VOLUME 95 fL (82-100); MONOCYTES # (AUTO) 0.5 /CMM (0.1-1.30); MONOCYTES % (AUTO) 4.8 % (2.0-12.0); NEUTROPHILS # (AUTO) 6.8 /CMM (1.8-8.9); PLATELET COUNT (AUTO) 401 /CMM (150-450); RED BLOOD CELL COUNT(AUTO) 3.44 MIL/uL (4.0-5.2); WHITE BLOOD COUNT (AUTO) 9.8 K/uL (4.3-11.0)
--- NOTE | 2017-05-07 06:50 | NUR ---
RN CLOSING NOTES: PT IN BED, AWAKE, NO SOB NOTED, NO FACIAL GRIMACE NOTED, LEFT AC IV ACCESS REMAINS PATENT AND FLUSHING WELL, ON HL. VS REMAINS STABLE, NEEDS ATTENDED, SAFETY PRECAUTIONS FOR FALL REMAINS ENGAGED, CALL LIGHT IN REACH, WILL ENDORSE TO DAY RN FOR JOEL.
[2017-05-07 06:54] LABS: CALCIUM, SERUM 10.5 mg/dL (8.5-10.1); CREATININE 0.9 mg/dL (0.6-1.3); MAGNESIUM 1.7 mg/dL (1.8-2.4); POTASSIUM 4.7 mmol/L (3.5-5.1)
--- NOTE | 2017-05-07 07:30 | NUR ---
MS RN OPENING RECEIVED PATIENT A/XO3 SLOW TO RESPOND. UNABLE TO EXPRESS WISES AT TIMES BUT COMPREHENSION INTACT. PATIENT RIGHT ARM FLACCID. ALL NEEDS IN REACH OF LEFT ARM. SHAKES HEAD NO TO SOB, DIFFICULTY BREATHING OR PAIN. REPOSITIONED TO GREATEST COMFORT. WILL ROUND Q2H OR LESS PER NEEDS.
[2017-05-07 08:00] VITALS: BP 131/70
[2017-05-07] MEDS: MINOXIDIL (2.5MG) 2.5 MG TABLET GT SCH ×2 (09:06→22:01)
[2017-05-07] MEDS: PANTOPRAZOLE 40 MG/PACK PACK GT SCH (09:06)
[2017-05-07] MEDS: LEVETIRACETAM SOL (5 ML) 100 MG/ML UDC GT SCH ×2 (09:06→22:00)
[2017-05-07] MEDS: GABAPENTIN 100 MG CAPSULE GT SCH ×3 (09:07→18:03)
[2017-05-07] MEDS: AMLODIPINE BESYLATE 10 MG TABLET GT SCH (09:07)
[2017-05-07] MEDS: LISINOPRIL (20MG) 20 MG TABLET GT SCH ×2 (09:07→22:02)
[2017-05-07] MEDS: Z GUARD REMEDY 2 OZ OINT TP PRN ×3 (09:07→18:03)
[2017-05-07] MEDS: METOPROLOL TARTRATE 25 MG TABLET GT SCH ×2 (09:07→22:01)
[2017-05-07] MEDS: FAMOTIDINE (20 MG) 20 MG TABLET GT SCH (09:07)
[2017-05-07] MEDS: SENNOSIDES 8.6 MG TABLET GT SCH (09:07)
[2017-05-07] MEDS: LACTOBACILLUS RHAMNOSUS GG 1 EACH CAP.SPRINK GT SCH (09:07)
[2017-05-07] MEDS: ASCORBIC ACID 500 MG TABLET GT SCH (09:07)
[2017-05-07] MEDS: DOCUSATE SODIUM LIQ 100 MG/10 ML UDC GT SCH ×2 (09:14→18:03)
[2017-05-07] MEDS: HEPARIN SODIUM, PORCINE 5000 UNITS/1 ML VIAL SQ SCH (09:20)
[2017-05-07] MEDS: Magnesium 1GM/D5W 100ML PREMIX 100 ML IV SCH ×2 (10:55→12:20)
--- NOTE | 2017-05-07 14:56 | NUR ---
MS RN NOTES MESSAGE FOR DR BOOTH PER X RAY UNABLE TO COMPLETE 2 VIEW CHEST PATIENT IS NOT ABLE TO GET OUT OF BED.
[2017-05-07 16:00] VITALS: BP 105/54
--- NOTE | 2017-05-07 16:00 | NUR ---
MS RN NOTES DR GOMEZ AT BEDSIDE
--- NOTE | 2017-05-07 19:00 | NUR ---
MS RN NOTES RECEIVE PT RESTING IN BED, A/OX 3. ABLE TO MOUTH WORDS, IN STABLE CONDITION. SAFETY MEASURES IN PLACE, ON LOW BED TO ENSURE SAFETY. CALL LIGHT WITHIN REACH. WILL CONTINUE TO MONITOR.
--- NOTE | 2017-05-07 19:04 | NUR ---
MS RN CLOSING PATIENT STABLE NO COMPLICATIONS NO CHANGES. ALL DUE MEDS GIVEN AND ALL NEEDS MET. CARE ENDORSED TO KIMBERLEY GARCIA FOR JOEL
[2017-05-07 20:00] VITALS: BP 109/55
[2017-05-07] MEDS: ATORVASTATIN 40 MG TABLET GT SCH (22:01)
[2017-05-08] MEDS: ALBUTEROL FS 2.5 MG/0.5 ML VIAL.NEB NEB SCH ×4 (01:11→19:24)
[2017-05-08 04:00] VITALS: BP 101/57
--- NOTE | 2017-05-08 06:35 | NUR ---
MS RN CLOSING NOTES PATIENT COMFORTABLY ASLEEP AND EASILY AWAKEN, ON 3LPM VIA NC 02 AT 98%, PATIENT WAS ASSISTED REPOSITIONED EVERY 2 HOURS FOR SKIN MGT. IV SITES TO LAC G 24 INTACT WITH NO S/S OF INFILTRATION NOTED. RESPIRATIONS EVEN AND UNLABORED, FREQUENT VISUAL CHECK DONE FOR SAFETY EVERY 2 HOURS. NURSING CARE RENDERED, NEEDS ATTENDED AND ANTICIPATED, KEPT CLEAN AND DRY AND COMFORTABLE, GOOD SKIN CARE PROVIDED. OFFLOAD AT ALL TIMES. SAFE HAZARD FREE ENVIRONMENT PROVIDED. CALL LIGHT WITHIN EASY TO REACH, ON LOW BED AT ALL TIMES TO ENSURE SAFETY, WILL ENDORSE TO THE NEXT SHIFT CONTINUE PLAN OF CAR
--- NOTE | 2017-05-08 07:00 | NUR ---
RN NOTES RECEIVED PATIENT ON BED, A/XO3 , SLOW TO RESPOND.RESPIRATION EVEN AND UNLABORED, ON O2 AT 3L O2 N/C , PATIENT RIGHT ARM FLACCID. L AC IV SITE G 24 CDI , ALL NEEDS IN REACH OF LEFT ARM. SR UP x3, CALL LIGHT WITHIN EASY REACH, CONTINUE TO MONITOR PT CLOSELY AND NOTIFY MD FOR ANY SIGNIFICANT CHANGES.
[2017-05-08 08:00] VITALS: BP 131/55
[2017-05-08] MEDS: SENNOSIDES 8.6 MG TABLET GT SCH (08:54)
[2017-05-08] MEDS: GABAPENTIN 100 MG CAPSULE GT SCH ×3 (08:54→16:21)
[2017-05-08] MEDS: DOCUSATE SODIUM LIQ 100 MG/10 ML UDC GT SCH ×2 (08:55→16:21)
[2017-05-08] MEDS: AMLODIPINE BESYLATE 10 MG TABLET GT SCH (08:55)
[2017-05-08] MEDS: ASCORBIC ACID 500 MG TABLET GT SCH (08:55)
[2017-05-08] MEDS: LEVETIRACETAM SOL (5 ML) 100 MG/ML UDC GT SCH ×2 (08:55→21:13)
[2017-05-08] MEDS: LACTOBACILLUS RHAMNOSUS GG 1 EACH CAP.SPRINK GT SCH (08:55)
[2017-05-08] MEDS: FAMOTIDINE (20 MG) 20 MG TABLET GT SCH (08:56)
[2017-05-08] MEDS: MINOXIDIL (2.5MG) 2.5 MG TABLET GT SCH ×2 (08:56→21:14)
[2017-05-08] MEDS: LISINOPRIL (20MG) 20 MG TABLET GT SCH ×2 (08:56→21:14)
[2017-05-08] MEDS: PANTOPRAZOLE 40 MG/PACK PACK GT SCH (09:01)
[2017-05-08] MEDS: METOPROLOL TARTRATE 25 MG TABLET GT SCH ×2 (09:01→21:14)
--- NOTE | 2017-05-08 12:00 | NUR ---
RN NOTES PT AT REST , SUPPORTIVE FAMILY AT THE BEDSIDE , CONTINUE TO MONITOR .
[2017-05-08 16:00] VITALS: BP 102/55
--- NOTE | 2017-05-08 18:50 | NUR ---
RN NOTES PT STABLE, WATCHING TV AT THIS TIME , RESPIRATION EVEN AND UNLABORED, MEDICATED PER MD ORDER , NO SIGNIFICANT CHANGES NOTED ON THIS SHIFT.
--- NOTE | 2017-05-08 19:30 | NUR ---
RN INITIAL NOTES RECEIVED THE PT AWAKE ON BED, A/O X4, SPEECH IS DELAYED. ON ROOM AIR SATURATING WELL, NO S/S OF RESP DISTRESS. GTUBE IS CLAMPED. PT ON DIAPERS ONLY. PT'S RIGHT UPPER AND LOWER EXTREMITIES ARE FLACCID. LEFT AC 24G IS FLUSHED AND PATENT, NO S/S OF INFILTRATION/INFECTION, DRESSING CDI. BED LOW AND LOCKED, SIDERAILS UP, CALL LIGHT WITHIN REACH. WILL MONITOR
[2017-05-08 20:00] VITALS: BP 123/49
[2017-05-08] MEDS: ATORVASTATIN 40 MG TABLET GT SCH (21:13)
[2017-05-09] MEDS: ALBUTEROL FS 2.5 MG/0.5 ML VIAL.NEB NEB SCH ×4 (01:30→19:15)
[2017-05-09 04:00] VITALS: BP 110/57
--- NOTE | 2017-05-09 06:20 | NUR ---
RN CLOSING NOTES PT REMAINS STABLE OF THE MOMENT. ALL DUE MEDS GIVEN, AM CARE PROVIDED. WILL ENDORSE JOEL TO AM RN
[2017-05-09 06:35] LABS: BASOPHILS % (AUTO) 0.3 % (0.0-2.0); EOSINOPHILS # (AUTO) 0.3 /CMM (0.0-0.7); EOSINOPHILS % (AUTO) 2.7 % (0.0-6.0); HEMATOCRIT 33 % (33-45); HEMOGLOBIN 11.2 g/dL (11.5-14.8); LYMPHOCYTES % (AUTO) 20.9 % (20.0-44.0); MEAN CORPUSCULAR HEMOGLOBIN 32 PG (26.0-33.0); MEAN CORPUSCULAR HGB CONC 34 g/dl (31.0-36.0); MEAN CORPUSCULAR VOLUME 96 fL (82-100); MONOCYTES # (AUTO) 0.4 /CMM (0.1-1.30); MONOCYTES % (AUTO) 4.5 % (2.0-12.0); NEUTROPHILS # (AUTO) 6.9 /CMM (1.8-8.9); NEUTROPHILS % (AUTO) 71.6 % (43.0-81.0); PLATELET COUNT (AUTO) 348 /CMM (150-450); RDW COEFFICIENT OF VARIATION 13.1 (11.5-15.0); RED BLOOD CELL COUNT(AUTO) 3.47 MIL/uL (4.0-5.2); WHITE BLOOD COUNT (AUTO) 9.6 K/uL (4.3-11.0)
[2017-05-09 06:46] LABS: CALCIUM, SERUM 10.1 mg/dL (8.5-10.1); MAGNESIUM 1.7 mg/dL (1.8-2.4); PHOSPHORUS 4.8 mg/dL (2.5-4.9); POTASSIUM 4.7 mmol/L (3.5-5.1)
--- NOTE | 2017-05-09 07:00 | NUR ---
RN NOTES RECEIVED PT ON BED, A/Ox3, WITH DELAYED SPEECH, RESPIRATION EVEN AND UNLABORED, ON RA , NO SOB NOTED, GT CLAMPED , PT TAKING PO WELL, NO L AC IV SITE G 24 CDI, SR UP x3, CALL LIGHT WITHIN EASY REACH, CONTINUE TO MONITOR PT CLOSELY
[2017-05-09 08:00] VITALS: BP 116/47
[2017-05-09] MEDS: LEVETIRACETAM SOL (5 ML) 100 MG/ML UDC GT SCH (08:10)
[2017-05-09] MEDS: PANTOPRAZOLE 40 MG/PACK PACK GT SCH (08:10)
[2017-05-09] MEDS: LACTOBACILLUS RHAMNOSUS GG 1 EACH CAP.SPRINK GT SCH (08:10)
[2017-05-09] MEDS: ASCORBIC ACID 500 MG TABLET GT SCH (08:10)
[2017-05-09] MEDS: MINOXIDIL (2.5MG) 2.5 MG TABLET GT SCH (08:11)
[2017-05-09] MEDS: LISINOPRIL (20MG) 20 MG TABLET GT SCH (08:12)
[2017-05-09] MEDS: DOCUSATE SODIUM LIQ 100 MG/10 ML UDC GT SCH ×2 (08:12→16:55)
[2017-05-09] MEDS: AMLODIPINE BESYLATE 10 MG TABLET GT SCH (08:13)
[2017-05-09] MEDS: GABAPENTIN 100 MG CAPSULE GT SCH ×3 (08:13→16:55)
[2017-05-09] MEDS: METOPROLOL TARTRATE 25 MG TABLET GT SCH (08:13)
[2017-05-09] MEDS: FAMOTIDINE (20 MG) 20 MG TABLET GT SCH (08:13)
[2017-05-09] MEDS: SENNOSIDES 8.6 MG TABLET GT SCH (08:14)
[2017-05-09] MEDS: Magnesium 1GM/D5W 100ML PREMIX 100 ML IV SCH ×2 (11:40→12:43)
--- NOTE | 2017-05-09 14:00 | NUR ---
RN NOTES ROOM AIR O2 SAT 94-95%. PT COLETTE ANY DISTRESS , CONTINUE TO MONITOR
[2017-05-09 16:00] VITALS: BP 98/44
--- NOTE | 2017-05-09 18:50 | NUR ---
RN NOTES DISCHARGE INSTRUCTION GIVEN TO PT, DISCHARGE SKIN PHOTO TAKEN , VSS STABLE . AWAITING FOR AMBULANCE AT 8PM TO GO HOME .
--- NOTE | 2017-05-09 19:30 | NUR ---
RN INITIAL NOTES RECEIVED THE PATIENT AWAKE ON BED, A/O X4, NOTED WITH DELAYED SPEECH. CURRENTLY ON ROOM AIR, TOLERATING WELL, NO S/S OF RESPIRATORY DISTRESS DISTRESS. GTUBE IS CLAMPED. PT'S RIGHT UPPER AND LOWER EXTREMITIES ARE FLACCID, ABLE TO MOVE LEFT UPPER AND LOWER EXTREMITIES. LEFT AC 24G IS FLUSHED AND PATENT, NO S/S OF INFILTRATION/INFECTION, DRESSING CDI. BED LOW AND LOCKED, SIDERAILS UP, CALL LIGHT WITHIN REACH. PATIENT EDUCATED REGARDING DISCHARGE INSTRUCTIONS, WITH VERBALIZATION OF UNDERSTANDING. ALL PERTINENT QUESTIONS ANSWERED. WILL CLOSELY MONITOR
[2017-05-09 20:00] VITALS: BP 116/46
--- NOTE | 2017-05-09 20:10 | NUR ---
RN NOTES LEFT AC #24 GAUGE DC'D WITH CANNULA INTACT, PATIENT TOLERATED PROCEDURE WELL. 2 pack worker (RAVI AND JULIETA) AT BEDSIDE TO TRANSPORT PATIENT HOME. ALL PAPERWORK GIVEN TO pack worker, PATIENT VERBALIZES UNDERSTANDING REGARDING DISCHARGE INSTRUCTIONS. PATIENT LEFT UNIT VIA GURNEY ACCOMPANIED BY EMT STAFF @ 2009 FOR TRANSPORT HOME, PATIENT IN STABLE CONDITION.
--- NOTE | 2017-05-10 13:17 | NUR ---
LATE ENTRY,CLARIFIED WITH [facility],WILL CONTINUE THE FF.MEDS ORDERED AMLODIPINE,LIPITOR,PEPCID,GABAPENTIN,HEPARIN,KEPPRA,LISINOPRIL,METOPROLOL,MINOXIDIL AND NEW ASA 81 PO DAILY.SUPERVISOR CONTACT AND SERVICE CLERKS KERRI WILL CALL IN HEPARIN/ASA,THE OTHER PO MEDS WAS ALREADY CALL IN EARLY AT 0800 IN [facility] AT [phone].MESSAGE LEFT TO /PT.
== END 2017-05-09 20:21 | disposition home or self-care (01) | DRG 143 ==
LOC: ER 16:16 → TELE-TD 19:03 → TELE1 05-02 11:38 → MEDSG1 05-03 09:57
PROVIDERS: ADMIT Internal Medicine; ATTEND Internal Medicine
DX: J95.03 Malfunction of tracheostomy stoma (principal); J96.20 Acute and chronic respiratory failure, unspecified whether with hypoxia or hypercapnia; N17.0 Acute kidney failure with tubular necrosis; G93.40 Encephalopathy, unspecified; R13.10 Dysphagia, unspecified; T79.7XXA Traumatic subcutaneous emphysema, initial encounter; I69.351 Hemiplegia and hemiparesis following cerebral infarction affecting right dominant side; J93.9 Pneumothorax, unspecified; J98.11 Atelectasis; E78.5 Hyperlipidemia, unspecified; E83.52 Hypercalcemia; F32.9 Major depressive disorder, single episode, unspecified; G40.909 Epilepsy, unspecified, not intractable, without status epilepticus; I10 Essential (primary) hypertension; Z79.899 Other long term (current) drug therapy; E66.9 Obesity, unspecified; Z68.30 Body mass index [BMI] 30.0-30.9, adult; F06.30 Mood disorder due to known physiological condition, unspecified; R47.01 Aphasia; Y83.9 Surgical procedure, unspecified as the cause of abnormal reaction of the patient, or of later complication, without mention of misadventure at the time of the procedure; Y82.9 Unspecified medical devices associated with adverse incidents; Y92.009 Unspecified place in unspecified non-institutional (private) residence as the place of occurrence of the external cause; Y81.8 Miscellaneous general- and plastic-surgery devices associated with adverse incidents, not elsewhere classified; X58.XXXA Exposure to other specified factors, initial encounter
CPT/HCPCS: 36415; 71010-TC; 71020-TC; 71250-TC; 80048-TC; 80053-TC; 80061-TC; 83540-TC; 83735-TC; 84100-TC; 85025-TC; 85730-TC; 87081-TC; 94762-TC; 94799-TC; 97110-TC; 97112-TC; A4606; A6402; J1644; J1953; J3475; Z7610